=== PATIENT | male | born 1970 | race Caucasian/White ===

== ENCOUNTER 2020-05-14 07:43 | Inpatient (IN) | payer BC ==
[2020-05-14 08:33] LABS: Hemoglobin 12.7 g/dL (14.0-18.0); Mean Corpuscular HGB CONC 32.1 g/dL (32.0-36.0); Mean Corpuscular Hemoglobin 33.6 pg (27.0-31.0); Mean Platelet Volume 10.9 fL (7.4-10.4); Platelet Count 143 thou/uL (130-400); RBC Distribution Width 11.6 % (11.5-14.5); Red Blood Cell (RBC) Count 3.79 mill/uL (4.70-6.10); White Blood Cell (WBC) Count 15.2 thou/uL (4.8-10.8)
[2020-05-14] MEDS ORDERED: Heparin 1,000 UNITS/ML VIAL ONE (08:49)
[2020-05-14 08:58] LABS: Base Excess-Venous -11.4 mmol/L (-2.0 to 3.0); Bicarbonate (HCO3v) 15.7 mmol/L (22.0-28.0); CO2 Tension (PvCO2) 38.9 mmHg (40.0-50.0); Chloride 80 mmol/L (98-107); Hemoglobin - Calc 13.8 g/dL (14.0-18.0); Potassium 5.7 mmol/L (3.5-5.1); Sodium 111 mmol/L (138-145); T. Carbon Dioxide 16.9 mmol/L (22.0-28.0); vO2 Saturation-calc 70.3 % (60.0-85.0)
[2020-05-14 09:02] LABS: Band 32 % (5-11); Dohle Bodies SLIGHT; Lymphocytes 4 % (21-51); MDiff Complete? YES; Monocytes 3 % (0-10); Neutrophil 60 % (42-75); Platelet Morphology Comment Appears Adequate; Polychromasia SLIGHT = 2-3 cells (100X) (0-2/hpf); Reactive Lymphocytes 1 % (0-10)
[2020-05-14 09:15] LABS: ALT (SGPT) 39 U/L (8-55); AST (SGOT) 22 U/L (5-34); Albumin 3.2 g/dL (3.5-5.0); Alkaline Phosphatase 118 U/L (40-110); Anion Gap 31 mmol/L (10-20); BUN (Urea Nitrogen) 64 mg/dL (8.9-20.6); Bilirubin, Total 1.1 mg/dL (0.2-1.2); Calc. Creatinine Clearance 0 mL/min (70-130); Calcium 8.5 mg/dL (7.8-10.44); Carbon Dioxide 12 mmol/L (22-29); Chloride 78 mmol/L (98-107); Globulin 3.8 g/dL (2.4-3.5); Glucose 1181 mg/dL (70-105); Potassium 5.7 mmol/L (3.5-5.1); Sodium 115 mmol/L (136-145)
[2020-05-14 09:22] LABS: Magnesium 2.9 mg/dL (1.6-2.6); Phosphorus 4.7 mg/dL (2.3-4.7)
[2020-05-14] MEDS ORDERED: Insulin Regular 300 UNITS/3 ML VIAL ONE (09:40)
[2020-05-14] MEDS ORDERED: INSULIN REGULAR IN 0.9 % NACL 100 UNIT/100 ML BAG ONE (09:40)
[2020-05-14] MEDS ORDERED: INSULIN REGULAR IN 0.9 % NACL 100 UNIT in Premix Bag 1 BAG IVPB SCH (09:45)
[2020-05-14] MEDS ORDERED: Sodium Chloride 0.9% 1,000 ML IV PRN ×4 (10:07)
[2020-05-14] MEDS ORDERED: Dextrose 5 %-0.45 % NaCl 1,000 ML IV PRN (10:07)
[2020-05-14] MEDS ORDERED: Electrolyte Replacement Protocol 1 EACH IVPB ONE (10:07)
[2020-05-14] MEDS ORDERED: D5 1/2 NS w/20 mEq KCL 1,000 ML IV PRN (10:07)
[2020-05-14] MEDS ORDERED: NS 0.9% w/ 20 MEQ KCL 1,000 ML IV PRN (10:07)
[2020-05-14] MEDS ORDERED: Vancomycin 1 GM/200 ML BAG ONE (10:08)
[2020-05-14] MEDS ORDERED: Cefepime 2 GM VIAL ONE ×2 (10:08→10:12)
[2020-05-14] MEDS ORDERED: HUMULIN R 100 UNITS in Sodium Chloride 0.9% 100 ML IVPB SCH (10:15)
--- NOTE | 2020-05-14 10:43 | RAD ---
SINGLE VIEW CHEST: Date; 05/14/2020 COMPARISON: 02/02/2017. HISTORY: Dyspnea. FINDINGS: Single view of the chest shows an enlarged but stable cardiomediastinal silhouette. Bilateral pulmona ry vascular enlargement is seen. There are questionable areas of nodularity in the chest which could represent pulmonary vasculature, but also could represent pulmonary nodules. No pleural effusion is s een. IMPRESSION: 1. Cardiomegaly. 2. Questionable bilateral pulmonary nodules. A CT of the chest with contrast is recommended for furt her evaluation. POS: [place]
[2020-05-14 11:01] LABS: Bacteria/HPF None Seen HPF (None Seen); Bilirubin Negative (Negative); Blood, Urine 2+ (Negative); Clarity Clear (Clear); Glucose, Urine (Dipstick) Greater than 1000 mg/dL (Negative); Ketone, Urine Trace mg/dL (Negative); Leukocyte Negative Leu/uL (Negative); Nitrite Negative (Negative); Protein, Urine (Dipstick) Negative (Neg-Trace); RBC/HPF 0-3 HPF (0-3); Specific Gravity, Urine 1.022 (1.002-1.036); Squamous Epithelial 0-3 HPF (0-3); Urobilinogen Normal mg/dL (Less than 2)
[2020-05-14 11:15] LABS: SARS-CoV-2 NAA Rapid Test Not Detected (NotDetected)
[2020-05-14 11:41] LABS: Glucose 983 mg/dL (70-105)
[2020-05-14] MEDS ORDERED: Ondansetron PF 4 MG/2 ML Vial IVP PRN (13:03)
[2020-05-14] MEDS ORDERED: Senokot S 8.6-50 MG TAB PO PRN (13:03)
[2020-05-14 13:35] LABS: Anion Gap 22 mmol/L (10-20); BUN (Urea Nitrogen) 64 mg/dL (8.9-20.6); Calc. Creatinine Clearance 0 mL/min (70-130); Calcium 8.3 mg/dL (7.8-10.44); Carbon Dioxide 18 mmol/L (22-29); Chloride 86 mmol/L (98-107); Potassium 4.4 mmol/L (3.5-5.1); Sodium 122 mmol/L (136-145)
[2020-05-14 13:51] LABS: Glucose 901 mg/dL (70-105)
--- NOTE | 2020-05-14 14:00 | CT ---
CT Lower Ext Lt WO Con History: Left thigh cellulitis Comparison: None. Findings: Severe subcutaneous inflammation within the medial left thigh. Evaluation for drainable col lection is limited without intravenous contrast. Moderate to severe skin thickening and subcutaneous inflammation of the medial right thigh. No underlying erosions or periostitis. Ossification along the proximal left tibiofibular joint. No subcutaneous gas. No definite drainable fluid collection. No subcutaneous emphysema. No muscular edema is appreciated. No high-grade deep fascial edema. Low-grade fluid process in the me dial investing fascia of the thigh. Impression: 1. Severe left greater than right medial thigh cellulitis without without definite evidence for drain able collection although limited without intravenous contrast. 2. Early transudation of fluid along the left medial investing fascia of the thigh with small volume fluid within the posterior, medial, and anterior compartments of the left thigh. Patient is at risk for developing deep fasciitis and myositis.
--- NOTE | 2020-05-14 14:01 | HP ---
CHIEF COMPLAINT: Fall and generalized weakness. HISTORY OF PRESENT ILLNESS: The patient is a 50-year-old male with past medical history of obesity, diabetes on metformin, and hypertension, who was brought in by EMS after a fall. The patient's father is really involved in patient's care. States that the patient fell today. He did not hit his head. He has been out of his medications for the past few weeks. Per EMS, his blood sugar was 400 and in the hospital, his blood sugar was in the thousands. He denies any fevers, chills, any nausea, vomiting, or diarrhea. PAST MEDICAL HISTORY: He has a history of obesity, diabetes, and hypertension. PAST SURGICAL HISTORY: He has had a partial right knee replacement and right arthroscopic knee surgery. SOCIAL HISTORY: Denies any alcohol use. Denies any drug use. He currently smokes tobacco 1.5 packs per day. REVIEW OF SYSTEMS: All negative except for the ones mentioned in the HPI. PHYSICAL EXAMINATION: VITAL SIGNS: Temperature of 98.6, respirations of 20, oxygen saturation of 97% on room air, blood pressure of 108/41, and pulse of 92. GENERAL: The patient is awake, alert, and oriented x3. Does not appear in distress. CV: S1 and S2 present. No murmurs, rubs, or gallops. LUNGS: Clear to auscultation. No rhonchi or wheezes noted. ABDOMEN: Obese. Bowel sounds are present x2. EXTREMITIES: He does have chronic venous stasis changes. Pedal pulses are present x2. He does on his left thigh has a very large red area significantly edematous and has also some mild erythema. The patient states that he has had this for quite some time. SKIN: As I mentioned on his left thigh, he has significant skin changes and he has significant erythema and redness on the left thigh. LABORATORY RESULTS: WBC of 15.2, hemoglobin of 12.7, hematocrit of 39.6, platelets of 143, and bands of 32. Chemistry; sodium of 115, potassium of 5.7, BUN of 64, creatinine of 3.39, and his glucose was 1181. His magnesium was 2.9. His serum osmolality was 337. His lactic acid was 3.1. He did have a chest x-ray, which indicated cardiomegaly and questionable bilateral pulmonary nodules. ASSESSMENT AND PLAN: The patient is a very pleasant 50-year-old male, who presents to the hospital with complaints of fall and also was noted to have an elevated blood sugar. 1. Diabetic ketoacidosis. The patient received 2 L of normal saline, started on a DKA protocol. We will continue to check BMP every 4 hours. We will check a hemoglobin A1c. The patient is only on metformin, not on any insulin. He is significantly obese. I believe he will most likely require metformin. Per nursing staff, family stated the patient likes his sugary drinks. 2. Lactic acidosis most likely secondary to problem #1. We will continue to monitor. 3. Hyponatremia. This is false. His corrected sodium is 132, given his glucose of 1181. 4. Hyperkalemia. This is appropriate. We will continue to monitor. 5. Anion gap metabolic acidosis most likely secondary to his ketosis. His beta-hydroxybutyric acid was 6.90. 6. Sepsis. We will start patient on antibiotics, not sure if that left thigh is infected. We will get a CT for further evaluation. 7. Deep venous thrombosis prophylaxis. We will put the patient on Lovenox. Job ID: [id number]
[2020-05-14 14:31] LABS: Anion Gap 21 mmol/L (10-20); BUN (Urea Nitrogen) 63 mg/dL (8.9-20.6); Calc. Creatinine Clearance 0 mL/min (70-130); Calcium 8.5 mg/dL (7.8-10.44); Carbon Dioxide 20 mmol/L (22-29); Chloride 87 mmol/L (98-107); Potassium 4.6 mmol/L (3.5-5.1); Sodium 123 mmol/L (136-145)
[2020-05-14 14:32] LABS: Lactic Acid 2.9 mmol/L (0.5-2.2)
[2020-05-14 14:50] LABS: Glucose Greater than 800 mg/dL (70-105)
[2020-05-14 15:51] LABS: Glucose 891 mg/dL (70-105)
[2020-05-14 16:47] LABS: Glucose 824 mg/dL (70-105)
[2020-05-14] MEDS: Heparin 5,000 UNITS/ML VIAL SC SCH ×2 (16:53→21:04)
[2020-05-14 17:10] VITALS: BMI 52.0
[2020-05-14 17:12] LABS: Glucose 813 mg/dL (70-105)
[2020-05-14 18:29] LABS: Anion Gap 19 mmol/L (10-20); BUN (Urea Nitrogen) 59 mg/dL (8.9-20.6); Calc. Creatinine Clearance 82 mL/min (70-130); Calcium 8.7 mg/dL (7.8-10.44); Carbon Dioxide 22 mmol/L (22-29); Chloride 90 mmol/L (98-107); Potassium 4.1 mmol/L (3.5-5.1); Sodium 127 mmol/L (136-145)
[2020-05-14] MEDS: NS 0.9% w/ 20 MEQ KCL 1,000 ML IV PRN ×2 (18:32→22:49)
[2020-05-14 18:49] LABS: Glucose 793 mg/dL (70-105)
[2020-05-14 19:34] LABS: Glucose 738 mg/dL (70-105)
[2020-05-14 20:28] LABS: Glucose 647 mg/dL (70-105)
[2020-05-14] MEDS: Cefepime 2 GM in Sodium Chloride 0.9% 100 ML IVPB SCH (21:29)
[2020-05-14 21:37] LABS: Glucose 589 mg/dL (70-105)
[2020-05-14 22:49] LABS: Glucose 546 mg/dL (70-105)
[2020-05-14 23:28] LABS: Glucose 489 mg/dL (70-105)
[2020-05-14] MEDS: Nystatin Powder 15 GM BOT TOP PRN (23:43)
[2020-05-15 04:05] LABS: Band 35 % (5-11); Hypochromia SLIGHT = 6-15 cells (100X) (0-5/hpf); Lymphocytes 8 % (21-51); MDiff Complete? YES; Mean Corpuscular HGB CONC 35.1 g/dL (32.0-36.0); Mean Corpuscular Hemoglobin 33.9 pg (27.0-31.0); Mean Corpuscular Volume 96.5 fL (78.0-98.0); Mean Platelet Volume 9.5 fL (7.4-10.4); Metamyelocyte 4 % (0-0); Monocytes 10 % (0-10); Neutrophil 43 % (42-75); Platelet Count 121 thou/uL (130-400); Platelet Morphology Comment Appears Adequate; RBC Distribution Width 11.5 % (11.5-14.5); Red Blood Cell (RBC) Count 3.84 mill/uL (4.70-6.10); White Blood Cell (WBC) Count 10.3 thou/uL (4.8-10.8)
[2020-05-15 04:09] LABS: Anion Gap 17 mmol/L (10-20); BUN (Urea Nitrogen) 47 mg/dL (8.9-20.6); Calc. Creatinine Clearance 134 mL/min (70-130); Calcium 8.4 mg/dL (7.8-10.44); Carbon Dioxide 23 mmol/L (22-29); Chloride 100 mmol/L (98-107); Glucose 400 mg/dL (70-105); Potassium 3.8 mmol/L (3.5-5.1); Sodium 136 mmol/L (136-145)
[2020-05-15 04:14] LABS: Hemoglobin A1c Greater than 14.0 % (4.0-6.0)
[2020-05-15] MEDS ORDERED: Insulin Glargine 10 UNITS in Pre-Filled Syringe 1 EACH SC SCH (09:00)
[2020-05-15] MEDS ORDERED: Prevnar 13-Val Conj/PF 0.5 ML SYRINGE IM ONE (09:00)
[2020-05-15] MEDS ORDERED: FLU VACC QS2020-21(6MOS UP)/PF 60 MCG/0.5 ML SYRINGE IM ONE (09:00)
[2020-05-15] MEDS: Heparin 5,000 UNITS/ML VIAL SC SCH ×3 (09:09→20:54)
[2020-05-15] MEDS: Cefepime 2 GM in Sodium Chloride 0.9% 100 ML IVPB SCH ×2 (09:10→20:50)
[2020-05-15] MEDS: HumaLOG 300 UNITS/3 ML VIAL SC SCH ×2 (11:48→16:25)
[2020-05-15] MEDS ORDERED: Dextrose 50% Abboject 50 ML SYRINGE SLOW IVP PRN (19:57)
[2020-05-15] MEDS ORDERED: Dextrose 5% in Water 1,000 ML IV PRN (19:57)
[2020-05-15] MEDS: HumaLOG 300 UNITS/3 ML VIAL SC PRN (20:54)
--- NOTE | 2020-05-15 21:52 | CON ---
DATE OF CONSULTATION: 05/15/2020 REASON FOR CONSULTATION: Cellulitis, lymphedema. HISTORY OF PRESENT ILLNESS: A 50-year-old patient, last admission was in 2014, because of osteoarthritis medial aspect of right knee with unicompartmental arthrotomy and he presents now with history of having lost balance and slowly lowering himself to the floor and inability to resume the standing position, so EMS had to be activated and brought him to the hospital emergency room. On arrival, his BP 91/41, pulse 101, temperature 98.4, O2 saturation 96. He was described as awake and alert. Lungs and heart exam were described as normal. There is not a lot of the details of the skin exam. Initial findings also included a white cell count 15,000, hemoglobin 12.7, platelets 143. His MCV was very high at 105 and 32% bands. Blood gas, pH 7.21, pCO2 38, pO2 44, this is venous not arterial. Initial creatinine was 3.39 and went down to 1.49, glucose was high at 395. Other findings included bilirubin 1.1, normal transaminases and alkaline phosphatase 118, albumin 3.2, globulin 3.8. Urinalysis with 7-10 wbcs, 0-3 rbcs, beta hydroxybutyrate 6.9, carbon dioxide was 12 when he came in. The initial assessment was diabetic ketoacidosis. He was given IV fluids and DKA protocol with monitoring of BNP every 4 hours. He was not taking insulin. He was given broad-spectrum antimicrobial therapy. Currently, he is lying in bed. He is awake, alert, [id number] pain in the left thigh area. Lymphedema with cellulitis. No headaches. No sore throat, odynophagia, or dysphagia. No chest pain and no abdominal pain. Voiding without difficulty, no diarrhea, no skin lesions. PAST MEDICAL HISTORY: Morbid obesity, sleep apnea, hypertension, type 2 diabetes, now looks like type 1 at least transiently. SOCIAL HISTORY: Current smoker daily, more than a pack a day. 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 No alcoholic beverage use. PAST SURGICAL HISTORY: Includes cataract surgery, right knee surgery, arthroscopy as well. ALLERGIES: NONE. CURRENT MEDICATION LIST: 1. Cefepime. 2. Ondansetron. 3. Insulin lispro and regular. 4. Electrolyte solution. PHYSICAL EXAMINATION: VITAL SIGNS: T-max 99.4, BP 108/58, heart rate 74, O2 sats 92 to 97. SKIN: Shows the area of lymphedema, particularly in the left thigh with marked area of swelling with marked tenderness and erythema, pretty much the whole area is quite tender, no drainage noted. No areas of necrosis noted. The left side is not nearly as swollen and does not have the same inflammatory changes. There is a little bit of erythema and maceration around the gluteal and perineal area. There is a large area of lymphedema protruding from the posterior aspect of the left thigh. GENITOURINARY: Peripheral IV access, he is voiding on his own in the diaper. Ocular movements conjugate. HEENT: Oral cavity without inflammatory changes. Teeth with the usual decay expected. NECK: Supple. No jugular venous distention. LUNGS: Symmetric. Clear breath sounds. HEART: S1-S2 regular rate. No S3 or S4. ABDOMEN: Soft with very prominent panniculus, difficult to examine, but no tenderness noted and the patient has osteoarthrosis in knees and ankles, but no inflammatory changes noted. EXTREMITIES: Lymphedema in lower extremities, but no inflammatory changes below the knee. All the inflammatory changes concentrated on the left lymphedematous mass. NEUROLOGIC: He is awake, alert, oriented, follows commands. Good recollection. Speech is normal. No delusional thinking process. LABORATORY DATA: The latest lab follow up results with creatinine improved to 1.49. White cell count down to 10.3, hemoglobin 13, platelets 121,000, 35% bands. Urinalysis, 7-10 wbcs. IMAGING STUDIES: We have a lower extremity CT, which showed cellulitis of the left greater than the right, no collection noted. Small volume fluid in posterior medial anterior compartment, left thigh. No overt fasciitis or myositis. Chest x-ray, cardiomegaly, pulmonary nodules, questionable two sets of blood cultures thus far no growth to date. Urine culture is not going to be pertinent to this case. ASSESSMENT: Morbid obesity. Sleep apnea. Type 2 diabetes with transient decompensation and development of absolute deficiency of insulin with diabetic ketoacidosis associated with this acute infection. Thus far, bacteremia has not been demonstrated, but still early on, may still show up in his samples tomorrow. Lymphedematous mass, left thigh and no abscess formation but with cellulitis without necrotizing features yet DISCUSSION: Typically those processes are due to beta-hemolytic streptococci, but Staphylococcus aureus including MRSA and gram-negative rods, not ruled out. He must have some element of steatohepatitis and chronic liver disease, again it may be bacteremic. At this point, I would maintain the current antimicrobials, which seem to be effective and unfortunately this sort of situation will take a very long time to resolve in my experience and it may have to continue for quite a few weeks treatment with IV medication. He may require transfer to a skilled place once he stabilizes. He will benefit from long-term prophylaxis with Pen VK. I do not think he would be a candidate for any type of compressive device, although the lymphedema nurse might have some recommendations, so I would advise eventual consultation in the outpatient setting with the lymphedema nurse. Job ID: [id number] MTDD
[2020-05-16 05:57] LABS: Anion Gap 24 mmol/L (10-20); BUN (Urea Nitrogen) 31 mg/dL (8.9-20.6); Calc. Creatinine Clearance 162 mL/min (70-130); Calcium 8.2 mg/dL (7.8-10.44); Carbon Dioxide 18 mmol/L (22-29); Chloride 98 mmol/L (98-107); Glucose 388 mg/dL (70-105); Potassium 4.4 mmol/L (3.5-5.1); Sodium 136 mmol/L (136-145)
[2020-05-16] MEDS: HumaLOG 300 UNITS/3 ML VIAL SC PRN ×4 (05:59→21:54)
--- NOTE | 2020-05-16 08:14 | PDOC.HOSPP ---
- Subjective Encounter Date: 05/15/20 Encounter Time: 11:15 Subjective: pt up in bed no complains - Objective Vital Signs & Weight: Vital Signs (12 hours) Temp Pulse Resp BP BP Pulse Ox 05/16/20 07:17 98.9 F 99 20 149/72 H 95 05/16/20 04:10 98.1 F 96 32 H 109/60 94 L 05/15/20 22:45 98.2 F 105 H 32 H 119/62 96 Weight Weight 352 lb 4 oz Most Recent Monitor Data Heart Rate from ECG 101 NIBP 124/57 NIBP BP-Mean 79 Respiration from ECG 33 SpO2 97 I&O: 05/15/20 05/16/20 05/17/20 06:59 06:59 06:59 Intake Total 4184 5212 Output Total 0 4175 Balance 2134 1037 Result Diagrams: 05/15/20 03:16 05/16/20 04:56 Additional Labs: Accuchecks 05/15/20 05/15/20 05/15/20 20:24 16:24 11:48 POC Glucose 383 H 441 H 374 H 05/15/20 05/15/20 09:08 08:09 POC Glucose 311 H 319 H Hospitalist ROS - Review of Systems Cardiovascular: denies: chest pain, palpitations, orthopnea, paroxysmal noc. dyspnea, edema, light headedness, other Gastrointestinal: denies: nausea, vomiting, abdominal pain, diarrhea, constipation, melena, hematochezia, other Genitourinary: denies: dysuria, frequency, incontinence, hematuria, retention, other - Medication Medications: Active Medications Generic Name Dose Route Start Last Admin Trade Name Freq PRN Reason Stop Dose Admin Heparin Sodium (Porcine) 5,000 units 05/14/20 15:00 05/15/20 20:54 Heparin 5,000 Units/Ml Vial SC 5,000 units TID AAYUSH Administration Potassium Chloride/Sodium Chloride 1,000 mls @ 500 mls/hr 05/14/20 10:07 05/14/20 14:38 Ns 0.9% W/ 20 Meq Kcl IV 1,000 mls .Q2H PRN Administration Step 2 of DKA Protocol Protocol Potassium Chloride/Sodium Chloride 1,000 mls @ 250 mls/hr 05/14/20 10:07 05/14/20 22:49 Ns 0.9% W/ 20 Meq Kcl IV 1,000 mls .Q4H PRN Administration SEE STEP 3 OF DKA PROTOCOL Protocol Insulin Human Regular 100 101 mls @ 0 mls/hr 05/14/20 10:15 05/14/20 22:50 units/ Sodium Chloride IVPB 101 mls INF AAYUSH Administration Protocol Titrate Sodium Chloride 1,000 mls @ 500 mls/hr 05/14/20 10:07 05/14/20 13:11 Normal Saline 0.9% IV 1,000 mls .Q2H PRN Administration Step 2 of DKA Protocol Protocol Cefepime HCl 2 gm/ Sodium 100 mls @ 200 mls/hr 05/14/20 22:00 05/15/20 20:50 Chloride IVPB 100 mls 1000,2200 AAYUSH Administration Insulin Glargine 10 units/ 0.1 mls @ 0 mls/hr 05/15/20 09:00 05/15/20 09:09 Miscellaneous Medication SC 0.1 mls QAM AAYUSH Administration Insulin Human Lispro 5 units 05/15/20 12:00 05/15/20 16:25 Humalog 300 Units/3 Ml Vial SC 5 unit TID-WM AAYUSH Administration Insulin Human Lispro 0 units 05/15/20 19:57 05/15/20 20:54 Humalog 300 Units/3 Ml Vial SC 5 unit .BEDTIME SLIDING SC PRN Administration Bedtime Correctional Scale Insulin Human Lispro 0 units 05/15/20 19:57 05/16/20 05:59 Humalog 300 Units/3 Ml Vial SC 10 units .MODERATE SLIDING SC PRN Administration Moderate Correctional Scale Nystatin 0 gm 05/14/20 18:27 05/14/20 23:43 Nystatin Powder 15 Gm Bot TOP 1 applic BIDPRN PRN Administration Rash/Topical Irritation Sodium Chloride 10 ml 05/14/20 21:00 05/15/20 20:50 Flush - Normal Saline 10 Ml Syringe IVF 10 ml Q12HR AAYUSH Administration - Exam Neck: negative: supple, symmetric, no JVD, no thyromegaly, no lymphadenopathy, no carotid bruit, JVD Heart: negative: RRR, no murmur, no gallops, no rubs, normal peripheral pulses, irregular, diminshed peripheral pulses, murmur present, II/IV, III/IV Respiratory: negative: CTAB, no wheezes, no rales, no ronchi, normal chest expansion, no tachypnea, normal percussion, rales, rhonchi, tachypneic, wheezes Gastrointestinal: negative: soft, non-tender, non-distended, normal bowel sounds, no palpable masses, no hepatomegaly, no splenomegaly, no bruit, no guarding, no rigidity, tender to palpation, distended, diminished bowl sounds, voluntary guarding Extremities - other findings: right thigh cellulitis Hosp A/P (1) DKA (diabetic ketoacidoses) Code(s): E11.10 - TYPE 2 DIABETES MELLITUS WITH KETOACIDOSIS WITHOUT COMA Status: Acute (2) Cellulitis Code(s): L03.90 - CELLULITIS, UNSPECIFIED Status: Acute (3) Obesity Code(s): E66.9 - OBESITY, UNSPECIFIED Status: Acute (4) Increased anion gap metabolic acidosis Code(s): E87.2 - ACIDOSIS Status: Acute - Plan Patient taken off insulin drip his gap is closed. We will transition to subcu insulin. CT of the left thigh indicates cellulitis will get infectious disease involved. Patient states that he has had this for quite some time. We will continue cefepime from now. PT to evaluate patient patient most likely will need fpc facility.
[2020-05-16] MEDS ORDERED: metFORMIN 500 MG TAB PO SCH (08:30)
[2020-05-16] MEDS ORDERED: Lisinopril/Hydrochlorothiazide 20 mg/12.5 mg Tablet PO SCH (09:00)
[2020-05-16] MEDS ORDERED: Lisinopril 5 MG TAB PO SCH (09:00)
[2020-05-16] MEDS ORDERED: Meloxicam 15 MG TAB PO SCH (09:00)
[2020-05-16] MEDS: HumaLOG 300 UNITS/3 ML VIAL SC SCH ×3 (09:51→17:12)
[2020-05-16] MEDS: Insulin Glargine 15 UNITS in Pre-Filled Syringe 1 EACH SC SCH (09:52)
[2020-05-16] MEDS: Heparin 5,000 UNITS/ML VIAL SC SCH ×3 (09:54→21:53)
[2020-05-16] MEDS: Furosemide 20 MG TAB PO SCH (09:57)
[2020-05-16] MEDS: Cefepime 2 GM in Sodium Chloride 0.9% 100 ML IVPB SCH ×3 (10:01→13:14)
[2020-05-16] MEDS ORDERED: BIOTENE MOUTH SPRAY 44.3 ML PO SCH (16:15)
--- NOTE | 2020-05-16 16:34 | RAD ---
Chest one view HISTORY: Dyspnea. COMPARISON: 05/14/2020. FINDINGS: Cardiac silhouette is magnified and enlarged. Pulmonary vasculature is upper limits of norm al and accentuated by shallow inspiration. Subtle as the base is now present, partially obscuring the left hemidiaphragm. No lobar consolidation or evidence of pneumothorax. Calcified granulomata are consistent with healed granulomatous disease. IMPRESSION : Subtle left basilar infiltrate. Clinical correlation regarding other signs and symptoms of left basil ar pneumonitis is required. Cardiomegaly and other findings are stable.
[2020-05-16] MEDS: metFORMIN 500 MG TAB PO SCH (16:53)
[2020-05-16] MEDS: Sodium Chloride 0.9% 1,000 ML IV SCH (16:55)
[2020-05-16] MEDS ORDERED: Nystatin 100,000 Units/mL UDCUP SSW SCH (17:00)
[2020-05-16] MEDS: Nystatin Powder 15 GM BOT TOP PRN (17:13)
[2020-05-16] MEDS: Nystatin 500,000 UNITS/5 ML UDCUP SSW SCH ×2 (17:27→21:52)
[2020-05-16] MEDS: Atorvastatin Calcium 20 MG TAB PO SCH (21:52)
[2020-05-16] MEDS: BIOTENE MOUTH SPRAY 44.3 ML PO SCH (21:53)
[2020-05-17] MEDS: Cefepime 2 GM in Sodium Chloride 0.9% 100 ML IVPB SCH ×2 (01:04→13:27)
[2020-05-17] MEDS: HumaLOG 300 UNITS/3 ML VIAL SC PRN ×4 (05:57→21:08)
[2020-05-17 06:10] LABS: Anion Gap 20 mmol/L (10-20); BUN (Urea Nitrogen) 23 mg/dL (8.9-20.6); Calc. Creatinine Clearance 235 mL/min (70-130); Carbon Dioxide 20 mmol/L (22-29); Chloride 95 mmol/L (98-107); Glucose 294 mg/dL (70-105); Potassium 3.8 mmol/L (3.5-5.1); Sodium 131 mmol/L (136-145)
[2020-05-17] MEDS: Furosemide 20 MG TAB PO SCH ×2 (08:12→08:13)
[2020-05-17] MEDS: HumaLOG 300 UNITS/3 ML VIAL SC SCH ×3 (08:13→16:44)
[2020-05-17] MEDS: Heparin 5,000 UNITS/ML VIAL SC SCH ×3 (08:13→21:03)
[2020-05-17] MEDS: metFORMIN 500 MG TAB PO SCH ×2 (08:13→16:44)
[2020-05-17] MEDS: Nystatin 500,000 UNITS/5 ML UDCUP SSW SCH ×4 (08:13→21:01)
[2020-05-17] MEDS: BIOTENE MOUTH SPRAY 44.3 ML PO SCH ×2 (09:00→21:06)
[2020-05-17] MEDS: Insulin Glargine 15 UNITS in Pre-Filled Syringe 1 EACH SC SCH (09:21)
--- NOTE | 2020-05-17 10:11 | PDOC.HOSPP ---
- Subjective Encounter Date: 05/16/20 Encounter Time: 12:50 Subjective: Patient up in bed complains of sore throat. - Objective Vital Signs & Weight: Vital Signs (12 hours) Temp Pulse Resp BP Pulse Ox 05/17/20 07:20 98.8 F 100 18 123/67 95 05/17/20 03:34 98.1 F 91 18 129/70 94 L 05/16/20 23:25 98.6 F 95 20 121/67 93 L Weight Weight 352 lb 4 oz Most Recent Monitor Data Heart Rate from ECG 101 NIBP 124/57 NIBP BP-Mean 79 Respiration from ECG 33 SpO2 97 I&O: 05/16/20 05/17/20 05/18/20 06:59 06:59 06:59 Intake Total 5212 6630 Output Total 4175 2550 Balance 1037 4080 Result Diagrams: 05/15/20 03:16 05/17/20 05:10 Additional Labs: Accuchecks 05/17/20 05/16/20 05/16/20 05:50 19:49 15:43 POC Glucose 273 H 279 H 313 H 05/16/20 05/15/20 11:27 06:03 POC Glucose 313 H 324 H Hospitalist ROS - Review of Systems Constitutional: reports: weakness ENT: reports: mouth pain Cardiovascular: denies: chest pain, palpitations, orthopnea, paroxysmal noc. dyspnea, edema, light headedness, other Gastrointestinal: denies: nausea, vomiting, abdominal pain, diarrhea, constipation, melena, hematochezia, other Genitourinary: denies: dysuria, frequency, incontinence, hematuria, retention, other - Medication Medications: Active Medications Generic Name Dose Route Start Last Admin Trade Name Freq PRN Reason Stop Dose Admin Atorvastatin Calcium 20 mg 05/16/20 21:00 05/16/20 21:52 Atorvastatin Calcium 20 Mg Tab PO 20 mg HS AAYUSH Administration Furosemide 20 mg 05/16/20 09:00 05/17/20 08:13 Furosemide 20 Mg Tab PO 20 mg QAM AAYUSH Administration Heparin Sodium (Porcine) 5,000 units 05/14/20 15:00 05/17/20 08:13 Heparin 5,000 Units/Ml Vial SC 5,000 units TID AAYUSH Administration Insulin Glargine 15 units/ 0.15 mls @ 0 mls/hr 05/16/20 09:00 05/17/20 09:21 Miscellaneous Medication SC 0.15 mls QAM AAYUSH Administration Cefepime HCl 2 gm/ Sodium 100 mls @ 200 mls/hr 05/16/20 13:00 05/17/20 01:04 Chloride IVPB 100 mls 0100,1300 AAYUSH Administration Sodium Chloride 1,000 mls @ 75 mls/hr 05/16/20 16:00 05/16/20 16:55 Normal Saline 0.9% IV 1,000 mls .[id number] AAYUSH Administration Insulin Human Lispro 5 units 05/15/20 12:00 05/17/20 08:13 Humalog 300 Units/3 Ml Vial SC 5 unit TID-WM AAYUSH Administration Insulin Human Lispro 0 units 05/15/20 19:57 05/16/20 21:54 Humalog 300 Units/3 Ml Vial SC 3 unit .BEDTIME SLIDING SC PRN Administration Bedtime Correctional Scale Insulin Human Lispro 0 units 05/15/20 19:57 05/17/20 05:57 Humalog 300 Units/3 Ml Vial SC 6 units .MODERATE SLIDING SC PRN Administration Moderate Correctional Scale Metformin HCl 500 mg 05/16/20 17:00 05/17/20 08:13 Metformin 500 Mg Tab PO 500 mg BID-WM AAYUSH Administration Miscellaneous Medication 0 ml 05/16/20 21:00 05/16/20 21:53 Biotene Mouth [place] 44.3 Ml PO 1 spr BID AAYUSH Administration Nystatin 0 gm 05/14/20 18:27 05/16/20 17:13 Nystatin Powder 15 Gm Bot TOP 1 applic BIDPRN PRN Administration Rash/Topical Irritation Nystatin 500,000 units 05/16/20 17:00 05/17/20 08:13 Nystatin 500,000 Units/5 Ml Udcup SSW 500,000 units QID AAYUSH Administration Sodium Chloride 10 ml 05/14/20 21:00 05/16/20 22:59 Flush - Normal Saline 10 Ml Syringe IVF Not Given Q12HR AAYUSH - Exam ENT: dry oral mucosa ENT - other findings: Significant dryness and mild erythema Neck: negative: supple, symmetric, no JVD, no thyromegaly, no lymphadenopathy, no carotid bruit, JVD Heart: negative: RRR, no murmur, no gallops, no rubs, normal peripheral pulses, irregular, diminshed peripheral pulses, murmur present, II/IV, III/IV Respiratory: negative: CTAB, no wheezes, no rales, no ronchi, normal chest expansion, no tachypnea, normal percussion, rales, rhonchi, tachypneic, wheezes Gastrointestinal: negative: soft, non-tender, non-distended, normal bowel sounds, no palpable masses, no hepatomegaly, no splenomegaly, no bruit, no guarding, no rigidity, tender to palpation, distended, diminished bowl sounds, voluntary guarding Hosp A/P (1) DKA (diabetic ketoacidoses) Code(s): E11.10 - TYPE 2 DIABETES MELLITUS WITH KETOACIDOSIS WITHOUT COMA Status: Acute (2) Cellulitis Code(s): L03.90 - CELLULITIS, UNSPECIFIED Status: Acute (3) Obesity Code(s): E66.9 - OBESITY, UNSPECIFIED Status: Acute (4) Increased anion gap metabolic acidosis Code(s): E87.2 - ACIDOSIS Status: Acute - Plan Patient taken off insulin drip his gap is closed. We will transition to subcu insulin. CT of the left thigh indicates cellulitis will get infectious disease involved. Patient states that he has had this for quite some time. We will continue cefepime from now. PT to evaluate patient patient most likely will need fci facility. 12 still appears very dehydrated we will start him on some IV fluids. We will start him on some nystatin however I did not appreciate any oral thrush. We will see physical therapy to work with patient. We will also start him on some duo nebs he continues to smoke. Will check a BNP
[2020-05-17] MEDS: Acetaminophen 325 MG TAB PO PRN (12:15)
[2020-05-17] MEDS: Sodium Chloride 0.9% 1,000 ML IV SCH ×2 (12:56→21:03)
--- NOTE | 2020-05-17 18:04 | PDOC.HOSPP ---
- Subjective Encounter Date: 05/17/20 Encounter Time: 11:50 Subjective: Patient up in bed no complaints. - Objective Vital Signs & Weight: Vital Signs (12 hours) Temp Pulse Resp BP Pulse Ox 05/17/20 15:15 98.5 F 95 18 132/81 92 L 05/17/20 11:00 98.5 F 96 18 108/66 95 05/17/20 08:00 95 05/17/20 07:20 98.8 F 100 18 123/67 95 Weight Weight 352 lb 4 oz Most Recent Monitor Data Heart Rate from ECG 101 NIBP 124/57 NIBP BP-Mean 79 Respiration from ECG 33 SpO2 97 I&O: 05/16/20 05/17/20 05/18/20 06:59 06:59 06:59 Intake Total 5212 6630 Output Total 4175 2550 Balance 1037 4080 Result Diagrams: 05/15/20 03:16 05/17/20 05:10 Additional Labs: Accuchecks 05/17/20 05/17/20 05/17/20 16:19 11:06 05:50 POC Glucose 242 H 300 H 273 H 05/16/20 05/16/20 05/15/20 19:49 05:52 06:03 POC Glucose 279 H 389 H 324 H Hospitalist ROS - Review of Systems Cardiovascular: denies: chest pain, palpitations, orthopnea, paroxysmal noc. dyspnea, edema, light headedness, other Gastrointestinal: denies: nausea, vomiting, abdominal pain, diarrhea, constipation, melena, hematochezia, other Genitourinary: denies: dysuria, frequency, incontinence, hematuria, retention, other - Medication Medications: Active Medications Generic Name Dose Route Start Last Admin Trade Name Freq PRN Reason Stop Dose Admin Acetaminophen 650 mg 05/14/20 13:03 05/17/20 12:15 Acetaminophen 325 Mg Tab PO 650 mg Q6H PRN Administration Headache/Fever/Mild Pain (1-3) Atorvastatin Calcium 20 mg 05/16/20 21:00 05/16/20 21:52 Atorvastatin Calcium 20 Mg Tab PO 20 mg HS AAYUSH Administration Furosemide 20 mg 05/16/20 09:00 05/17/20 08:13 Furosemide 20 Mg Tab PO 20 mg QAM AAYUSH Administration Heparin Sodium (Porcine) 5,000 units 05/14/20 15:00 05/17/20 16:05 Heparin 5,000 Units/Ml Vial SC 5,000 units TID AAYUSH Administration Insulin Glargine 15 units/ 0.15 mls @ 0 mls/hr 05/16/20 09:00 05/17/20 09:21 Miscellaneous Medication SC 0.15 mls QAM AAYUSH Administration Cefepime HCl 2 gm/ Sodium 100 mls @ 200 mls/hr 05/16/20 13:00 05/17/20 13:27 Chloride IVPB 100 mls 0100,1300 AAYUSH Administration Sodium Chloride 1,000 mls @ 75 mls/hr 05/16/20 16:00 05/17/20 12:56 Normal Saline 0.9% IV Not Given .[id number] AAYUSH Insulin Human Lispro 5 units 05/15/20 12:00 05/17/20 16:44 Humalog 300 Units/3 Ml Vial SC 5 unit TID-WM AAYUSH Administration Insulin Human Lispro 0 units 05/15/20 19:57 05/16/20 21:54 Humalog 300 Units/3 Ml Vial SC 3 unit .BEDTIME SLIDING SC PRN Administration Bedtime Correctional Scale Insulin Human Lispro 0 units 05/15/20 19:57 05/17/20 16:45 Humalog 300 Units/3 Ml Vial SC 4 units .MODERATE SLIDING SC PRN Administration Moderate Correctional Scale Metformin HCl 500 mg 05/16/20 17:00 05/17/20 16:44 Metformin 500 Mg Tab PO 500 mg BID-WM AAYUSH Administration Miscellaneous Medication 0 ml 05/16/20 21:00 05/17/20 09:00 Biotene Mouth [place] 44.3 Ml PO 1 spr BID AAYUSH Administration Nystatin 0 gm 05/14/20 18:27 05/16/20 17:13 Nystatin Powder 15 Gm Bot TOP 1 applic BIDPRN PRN Administration Rash/Topical Irritation Nystatin 500,000 units 05/16/20 17:00 05/17/20 16:44 Nystatin 500,000 Units/5 Ml Udcup SSW 500,000 units QID AAYUSH Administration Senna/Docusate Sodium 2 tab 05/14/20 13:03 05/17/20 12:15 Senokot S 8.6-50 Mg Tab PO 2 tab BIDPRN PRN Administration Constipation Sodium Chloride 10 ml 05/14/20 21:00 05/17/20 12:58 Flush - Normal Saline 10 Ml Syringe IVF Not Given Q12HR AAYUSH - Exam Neck: negative: supple, symmetric, no JVD, no thyromegaly, no lymphadenopathy, no carotid bruit, JVD Heart: negative: RRR, no murmur, no gallops, no rubs, normal peripheral pulses, irregular, diminshed peripheral pulses, murmur present, II/IV, III/IV Respiratory: negative: CTAB, no wheezes, no rales, no ronchi, normal chest expansion, no tachypnea, normal percussion, rales, rhonchi, tachypneic, wheezes Hosp A/P (1) DKA (diabetic ketoacidoses) Code(s): E11.10 - TYPE 2 DIABETES MELLITUS WITH KETOACIDOSIS WITHOUT COMA Status: Acute (2) Cellulitis Code(s): L03.90 - CELLULITIS, UNSPECIFIED Status: Acute (3) Obesity Code(s): E66.9 - OBESITY, UNSPECIFIED Status: Acute (4) Increased anion gap metabolic acidosis Code(s): E87.2 - ACIDOSIS Status: Acute - Plan Patient taken off insulin drip his gap is closed. We will transition to subcu insulin. CT of the left thigh indicates cellulitis will get infectious disease involved. Patient states that he has had this for quite some time. We will continue cefepime from now. PT to evaluate patient patient most likely will need [facility] facility. 05/16 still appears very dehydrated we will start him on some IV fluids. We will start him on some nystatin however I did not appreciate any oral thrush. We will see physical therapy to work with patient. We will also start him on some duo nebs he continues to smoke. Will check a BNP 05/17 we will continue IV antibiotics for now. We will give him 1 dose of IV Diflucan since he complains of pain on swallowing. No visible thrush noted. We will also put patient on PPI. We will add Lantus 8 units at nighttime.
[2020-05-17] MEDS ORDERED: Fluconazole In NaCl,Iso-Osm 200 MG in Premix Bag 1 BAG IVPB SCH (18:15)
[2020-05-17] MEDS: Atorvastatin Calcium 20 MG TAB PO SCH (21:02)
[2020-05-17] MEDS: Famotidine 20 MG TAB PO SCH (21:02)
[2020-05-17] MEDS: Insulin Glargine 8 UNITS in Pre-Filled Syringe 1 EACH SC SCH (21:05)
[2020-05-18] MEDS: Cefepime 2 GM in Sodium Chloride 0.9% 100 ML IVPB SCH ×2 (00:31→13:24)
[2020-05-18] MEDS: HumaLOG 300 UNITS/3 ML VIAL SC PRN ×4 (05:57→21:43)
[2020-05-18] MEDS: Sodium Chloride 0.9% 1,000 ML IV SCH ×2 (05:59→21:41)
[2020-05-18 06:43] LABS: Band 13 % (5-11); Hemoglobin 12.2 g/dL (14.0-18.0); Lymphocytes 14 % (21-51); MDiff Complete? YES; Mean Corpuscular HGB CONC 34.1 g/dL (32.0-36.0); Mean Corpuscular Hemoglobin 33.7 pg (27.0-31.0); Mean Corpuscular Volume 98.9 fL (78.0-98.0); Mean Platelet Volume 8.9 fL (7.4-10.4); Metamyelocyte 1 % (0-0); Monocytes 2 % (0-10); Myelocyte 1 % (0-0); Neutrophil 57 % (42-75); Platelet Count 130 thou/uL (130-400); Platelet Morphology Comment Appears Adequate; Polychromasia SLIGHT = 2-3 cells (100X) (0-2/hpf); RBC Distribution Width 11.6 % (11.5-14.5); Reactive Lymphocytes 12 % (0-10); Red Blood Cell (RBC) Count 3.62 mill/uL (4.70-6.10); White Blood Cell (WBC) Count 11.2 thou/uL (4.8-10.8)
[2020-05-18 06:46] LABS: ALT (SGPT) 36 U/L (8-55); AST (SGOT) 35 U/L (5-34); Albumin 2.2 g/dL (3.5-5.0); Alkaline Phosphatase 168 U/L (40-110); Anion Gap 20 mmol/L (10-20); BUN (Urea Nitrogen) 15 mg/dL (8.9-20.6); Bilirubin, Total 0.9 mg/dL (0.2-1.2); Calc. Creatinine Clearance 270 mL/min (70-130); Calcium 7.6 mg/dL (7.8-10.44); Carbon Dioxide 19 mmol/L (22-29); Chloride 97 mmol/L (98-107); Globulin 3.6 g/dL (2.4-3.5); Glucose 248 mg/dL (70-105); Potassium 3.6 mmol/L (3.5-5.1); Protein, Total 5.8 g/dL (6.0-8.3); Sodium 132 mmol/L (136-145)
[2020-05-18] MEDS: Furosemide 20 MG TAB PO SCH (08:28)
[2020-05-18] MEDS: Famotidine 20 MG TAB PO SCH ×2 (08:28→21:40)
[2020-05-18] MEDS: metFORMIN 500 MG TAB PO SCH ×2 (08:28→17:30)
[2020-05-18] MEDS: Nystatin 500,000 UNITS/5 ML UDCUP SSW SCH ×4 (08:29→21:41)
[2020-05-18] MEDS: Insulin Glargine 15 UNITS in Pre-Filled Syringe 1 EACH SC SCH (08:29)
[2020-05-18] MEDS: Heparin 5,000 UNITS/ML VIAL SC SCH ×3 (08:29→21:40)
[2020-05-18] MEDS: HumaLOG 300 UNITS/3 ML VIAL SC SCH ×3 (08:30→17:31)
[2020-05-18] MEDS: BIOTENE MOUTH SPRAY 44.3 ML PO SCH (11:55)
--- NOTE | 2020-05-18 14:41 | PDOC.HOSPP ---
- Subjective Encounter Date: 05/18/20 Encounter Time: 12:30 Subjective: Patient up in bed no complaints. - Objective Vital Signs & Weight: Vital Signs (12 hours) Temp Pulse Resp BP Pulse Ox 05/18/20 12:00 18 05/18/20 11:15 98.8 F 95 18 130/71 95 05/18/20 08:00 96 05/18/20 07:05 98.4 F 95 18 118/75 94 L 05/18/20 03:50 98.4 F 92 18 156/73 H 96 Weight Weight 352 lb 4 oz Most Recent Monitor Data Heart Rate from ECG 101 NIBP 124/57 NIBP BP-Mean 79 Respiration from ECG 33 SpO2 97 I&O: 05/17/20 05/18/20 05/19/20 06:59 06:59 06:59 Intake Total 6630 7125 Output Total 2550 3650 Balance 4080 3475 Result Diagrams: 05/18/20 05:33 05/18/20 05:33 Additional Labs: Accuchecks 05/18/20 05/18/20 05/17/20 11:10 05:36 20:23 POC Glucose 257 H 236 H 232 H 05/17/20 05/16/20 16:19 05:52 POC Glucose 242 H 389 H Hospitalist ROS - Review of Systems Cardiovascular: denies: chest pain, palpitations, orthopnea, paroxysmal noc. dyspnea, edema, light headedness, other Gastrointestinal: denies: nausea, vomiting, abdominal pain, diarrhea, constipation, melena, hematochezia, other Genitourinary: denies: dysuria, frequency, incontinence, hematuria, retention, other - Medication Medications: Active Medications Generic Name Dose Route Start Last Admin Trade Name Freq PRN Reason Stop Dose Admin Acetaminophen 650 mg 05/14/20 13:03 05/17/20 12:15 Acetaminophen 325 Mg Tab PO 650 mg Q6H PRN Administration Headache/Fever/Mild Pain (1-3) Atorvastatin Calcium 20 mg 05/16/20 21:00 05/17/20 21:02 Atorvastatin Calcium 20 Mg Tab PO 20 mg HS AAYUSH Administration Famotidine 20 mg 05/17/20 21:00 05/18/20 08:28 Famotidine 20 Mg Tab PO 20 mg BID AAYUSH Administration Furosemide 20 mg 05/16/20 09:00 12/15/20 08:28 Furosemide 20 Mg Tab PO 20 mg QAM AAYUSH Administration Heparin Sodium (Porcine) 5,000 units 05/14/20 15:00 05/18/20 08:29 Heparin 5,000 Units/Ml Vial SC 5,000 units TID AAYUSH Administration Insulin Glargine 15 units/ 0.15 mls @ 0 mls/hr 05/16/20 09:00 05/18/20 08:29 Miscellaneous Medication SC 0.15 mls QAM AAYUSH Administration Cefepime HCl 2 gm/ Sodium 100 mls @ 200 mls/hr 05/16/20 13:00 05/18/20 13:24 Chloride IVPB 100 mls 0100,1300 AAYUSH Administration Sodium Chloride 1,000 mls @ 75 mls/hr 05/16/20 16:00 05/18/20 05:59 Normal Saline 0.9% IV 1,000 mls .[id number] AAYUSH Administration Insulin Glargine 8 units/ 0.08 mls @ 0 mls/hr 05/17/20 21:00 05/17/20 21:05 Miscellaneous Medication SC 0.08 mls HS AAYUSH Administration Insulin Human Lispro 5 units 05/15/20 12:00 05/18/20 11:56 Humalog 300 Units/3 Ml Vial SC 5 unit TID-WM AAYUSH Administration Insulin Human Lispro 0 units 05/15/20 19:57 05/17/20 21:08 Humalog 300 Units/3 Ml Vial SC 2 unit .BEDTIME SLIDING SC PRN Administration Bedtime Correctional Scale Insulin Human Lispro 0 units 05/15/20 19:57 05/18/20 11:56 Humalog 300 Units/3 Ml Vial SC 6 units .MODERATE SLIDING SC PRN Administration Moderate Correctional Scale Metformin HCl 500 mg 05/16/20 17:00 05/18/20 08:28 Metformin 500 Mg Tab PO 500 mg BID-WM AAYUSH Administration Miscellaneous Medication 0 ml 05/16/20 21:00 05/18/20 11:55 Biotene Mouth [place] 44.3 Ml PO Not Given BID AAYUSH Nystatin 0 gm 05/14/20 18:27 05/16/20 17:13 Nystatin Powder 15 Gm Bot TOP 1 applic BIDPRN PRN Administration Rash/Topical Irritation Nystatin 500,000 units 05/16/20 17:00 05/18/20 13:24 Nystatin 500,000 Units/5 Ml Udcup SSW 500,000 units QID AAYUSH Administration Senna/Docusate Sodium 2 tab 05/14/20 13:03 05/17/20 12:15 Senokot S 8.6-50 Mg Tab PO 2 tab BIDPRN PRN Administration Constipation Sodium Chloride 10 ml 05/14/20 21:00 05/18/20 11:55 Flush - Normal Saline 10 Ml Syringe IVF Not Given Q12HR AAYUSH - Exam Heart: negative: RRR, no murmur, no gallops, no rubs, normal peripheral pulses, irregular, diminshed peripheral pulses, murmur present, II/IV, III/IV Respiratory: negative: CTAB, no wheezes, no rales, no ronchi, normal chest expansion, no tachypnea, normal percussion, rales, rhonchi, tachypneic, wheezes Gastrointestinal: negative: soft, non-tender, non-distended, normal bowel sounds, no palpable masses, no hepatomegaly, no splenomegaly, no bruit, no guarding, no rigidity, tender to palpation, distended, diminished bowl sounds, voluntary guarding Hosp A/P (1) DKA (diabetic ketoacidoses) Code(s): E11.10 - TYPE 2 DIABETES MELLITUS WITH KETOACIDOSIS WITHOUT COMA Status: Acute (2) Cellulitis Code(s): L03.90 - CELLULITIS, UNSPECIFIED Status: Acute (3) Obesity Code(s): E66.9 - OBESITY, UNSPECIFIED Status: Acute (4) Increased anion gap metabolic acidosis Code(s): E87.2 - ACIDOSIS Status: Acute - Plan Patient taken off insulin drip his gap is closed. We will transition to subcu insulin. CT of the left thigh indicates cellulitis will get infectious disease involved. Patient states that he has had this for quite some time. We will continue cefepime from now. PT to evaluate patient patient most likely will need prison facility. 05/16 still appears very dehydrated we will start him on some IV fluids. We will start him on some nystatin however I did not appreciate any oral thrush. We will see physical therapy to work with patient. We will also start him on some duo nebs he continues to smoke. Will check a BNP 05/17 we will continue IV antibiotics for now. We will give him 1 dose of IV Diflucan since he complains of pain on swallowing. No visible thrush noted. We will also put patient on PPI. We will add Lantus 8 units at nighttime. 05/18 continue IV Diflucan for now. We will continue insulin. Patient most likely will need prison facility. On DVT prophylaxis. We will continue current antibiotics.
[2020-05-18] MEDS ORDERED: Fluconazole In NaCl,Iso-Osm 200 MG in Premix Bag 1 BAG IVPB SCH (15:00)
[2020-05-18] MEDS: Acetaminophen 325 MG TAB PO PRN (21:39)
[2020-05-18] MEDS: Insulin Glargine 8 UNITS in Pre-Filled Syringe 1 EACH SC SCH (21:40)
[2020-05-18] MEDS: Atorvastatin Calcium 20 MG TAB PO SCH (21:40)
[2020-05-18] MEDS ORDERED: Ketorolac Tromethamine 10 MG TAB PO PRN (21:57)
[2020-05-18] MEDS: Ketorolac Tromethamine 10 MG TAB PO PRN (23:49)
[2020-05-19] MEDS: Cefepime 2 GM in Sodium Chloride 0.9% 100 ML IVPB SCH ×2 (00:04→13:16)
[2020-05-19] MEDS: HumaLOG 300 UNITS/3 ML VIAL SC PRN ×4 (05:54→21:06)
[2020-05-19] MEDS: Acetaminophen 325 MG TAB PO PRN (05:58)
[2020-05-19 05:59] LABS: Anion Gap 15 mmol/L (10-20); BUN (Urea Nitrogen) 12 mg/dL (8.9-20.6); Calc. Creatinine Clearance 259 mL/min (70-130); Calcium 7.4 mg/dL (7.8-10.44); Carbon Dioxide 24 mmol/L (22-29); Chloride 97 mmol/L (98-107); Glucose 303 mg/dL (70-105); Potassium 3.3 mmol/L (3.5-5.1); Sodium 133 mmol/L (136-145)
[2020-05-19] MEDS ORDERED: Fluconazole In NaCl,Iso-Osm 200 MG in Premix Bag 1 BAG IVPB SCH (09:15)
[2020-05-19] MEDS: metFORMIN 500 MG TAB PO SCH ×2 (09:29→16:53)
[2020-05-19] MEDS: Famotidine 20 MG TAB PO SCH ×2 (09:29→21:04)
[2020-05-19] MEDS: HumaLOG 300 UNITS/3 ML VIAL SC SCH ×3 (09:30→17:29)
[2020-05-19] MEDS: Nystatin 500,000 UNITS/5 ML UDCUP SSW SCH ×4 (09:31→21:05)
[2020-05-19] MEDS: Heparin 5,000 UNITS/ML VIAL SC SCH ×3 (09:31→21:05)
[2020-05-19] MEDS: BIOTENE MOUTH SPRAY 44.3 ML PO SCH ×2 (09:33→21:23)
[2020-05-19] MEDS: Insulin Glargine 15 UNITS in Pre-Filled Syringe 1 EACH SC SCH (09:47)
[2020-05-19] MEDS ORDERED: Potassium Chloride 20 MEQ TAB PO SCH (10:30)
[2020-05-19] MEDS ORDERED: Electrolyte Replacement Protocol 1 EACH FS SCH (10:30)
[2020-05-19] MEDS ORDERED: Electrolyte Replacement Protocol FS PRN (10:30)
[2020-05-19] MEDS ORDERED: Magnesium 2 GM/50 ML 2 GM in Premix Bag 1 BAG IVPB SCH (10:45)
[2020-05-19] MEDS: Sodium Chloride 0.9% 1,000 ML IV SCH (12:15)
[2020-05-19] MEDS: Lisinopril 20 MG TAB PO SCH (12:15)
[2020-05-19] MEDS: Ketorolac Tromethamine 10 MG TAB PO PRN ×2 (13:23→21:05)
--- NOTE | 2020-05-19 16:40 | PDOC.HOSPP ---
- Subjective Encounter Date: 05/19/20 Encounter Time: 11:25 Subjective: Patient up in bed still complains of dry mouth. - Objective Vital Signs & Weight: Vital Signs (12 hours) Temp Pulse Resp BP Pulse Ox 05/19/20 11:12 98.3 F 88 20 113/66 94 L 05/19/20 08:35 98 05/19/20 07:21 98.4 F 100 20 128/64 92 L Weight Weight 352 lb 4 oz Most Recent Monitor Data Heart Rate from ECG 101 NIBP 124/57 NIBP BP-Mean 79 Respiration from ECG 33 SpO2 97 I&O: 05/18/20 05/19/20 05/20/20 06:59 06:59 06:59 Intake Total 7125 7548 Output Total 3650 5725 Balance 8572 5503 Result Diagrams: 05/18/20 05:33 05/19/20 04:52 Additional Labs: Accuchecks 05/19/20 05/19/20 05/19/20 16:26 11:14 05:46 POC Glucose 281 H 248 H 277 H 05/18/20 20:57 POC Glucose 216 H Hospitalist ROS - Review of Systems Cardiovascular: denies: chest pain, palpitations, orthopnea, paroxysmal noc. dyspnea, edema, light headedness, other Gastrointestinal: denies: nausea, vomiting, abdominal pain, diarrhea, constipation, melena, hematochezia, other Genitourinary: denies: dysuria, frequency, incontinence, hematuria, retention, other - Medication Medications: Active Medications Generic Name Dose Route Start Last Admin Trade Name Freq PRN Reason Stop Dose Admin Acetaminophen 650 mg 05/14/20 13:03 05/19/20 05:58 Acetaminophen 325 Mg Tab PO 650 mg Q6H PRN Administration Headache/Fever/Mild Pain (1-3) Atorvastatin Calcium 20 mg 05/16/20 21:00 05/18/20 21:40 Atorvastatin Calcium 20 Mg Tab PO 20 mg HS AAYUSH Administration Famotidine 20 mg 05/17/20 21:00 05/19/20 09:29 Famotidine 20 Mg Tab PO 20 mg BID AAYUSH Administration Furosemide 20 mg 05/16/20 09:00 05/18/20 08:28 Furosemide 20 Mg Tab PO 20 mg QAM AAYUSH Administration Heparin Sodium (Porcine) 5,000 units 05/14/20 15:00 05/19/20 15:14 Heparin 5,000 Units/Ml Vial SC 5,000 units TID AAYUSH Administration Insulin Glargine 15 units/ 0.15 mls @ 0 mls/hr 05/16/20 09:00 05/19/20 09:47 Miscellaneous Medication SC 0.15 mls QAM AAYUSH Administration Cefepime HCl 2 gm/ Sodium 100 mls @ 200 mls/hr 05/16/20 13:00 05/19/20 13:16 Chloride IVPB 100 mls 0100,1300 AAYUSH Administration Sodium Chloride 1,000 mls @ 75 mls/hr 05/16/20 16:00 05/19/20 12:15 Normal Saline 0.9% IV 1,000 mls .[id number] AAYUSH Administration Insulin Glargine 8 units/ 0.08 mls @ 0 mls/hr 05/17/20 21:00 05/18/20 21:40 Miscellaneous Medication SC 0.08 mls HS AAYUSH Administration Insulin Human Lispro 0 units 05/15/20 19:57 05/18/20 21:43 Humalog 300 Units/3 Ml Vial SC 2 unit .BEDTIME SLIDING SC PRN Administration Bedtime Correctional Scale Insulin Human Lispro 0 units 05/15/20 19:57 05/19/20 12:17 Humalog 300 Units/3 Ml Vial SC 4 units .MODERATE SLIDING SC PRN Administration Moderate Correctional Scale Ketorolac Tromethamine 10 mg 05/18/20 23:20 05/19/20 13:23 Ketorolac Tromethamine 10 Mg Tab PO 05/23/20 23:21 10 mg Q6HR PRN Administration pain Lisinopril 20 mg 05/19/20 09:00 05/19/20 12:15 Lisinopril 20 Mg Tab PO Not Given DAILY AAYUSH Metformin HCl 500 mg 05/16/20 17:00 05/19/20 09:29 Metformin 500 Mg Tab PO 500 mg BID-WM AAYUSH Administration Miscellaneous Medication 0 ml 05/16/20 21:00 05/19/20 09:33 Biotene Mouth [place] 44.3 Ml PO Not Given BID AAYUSH Nystatin 0 gm 05/14/20 18:27 05/16/20 17:13 Nystatin Powder 15 Gm Bot TOP 1 applic BIDPRN PRN Administration Rash/Topical Irritation Nystatin 500,000 units 05/16/20 17:00 05/19/20 13:16 Nystatin 500,000 Units/5 Ml Udcup SSW 500,000 units QID AAYUSH Administration Senna/Docusate Sodium 2 tab 05/14/20 13:03 05/17/20 12:15 Senokot S 8.6-50 Mg Tab PO 2 tab BIDPRN PRN Administration Constipation Sodium Chloride 10 ml 05/14/20 21:00 05/19/20 09:33 Flush - Normal Saline 10 Ml Syringe IVF Not Given Q12HR AAYUSH - Exam General - other findings: mouth appears dry Neck: negative: supple, symmetric, no JVD, no thyromegaly, no lymphadenopathy, no carotid bruit, JVD Heart: negative: RRR, no murmur, no gallops, no rubs, normal peripheral pulses, irregular, diminshed peripheral pulses, murmur present, II/IV, III/IV Respiratory: negative: CTAB, no wheezes, no rales, no ronchi, normal chest expansion, no tachypnea, normal percussion, rales, rhonchi, tachypneic, wheezes Gastrointestinal: negative: soft, non-tender, non-distended, normal bowel sounds, no palpable masses, no hepatomegaly, no splenomegaly, no bruit, no guarding, no rigidity, tender to palpation, distended, diminished bowl sounds, voluntary guarding Extremities: 2+ LE edema Extremities - other findings: Left thigh erythema noted. Hosp A/P (1) DKA (diabetic ketoacidoses) Code(s): E11.10 - TYPE 2 DIABETES MELLITUS WITH KETOACIDOSIS WITHOUT COMA Status: Acute (2) Cellulitis Code(s): L03.90 - CELLULITIS, UNSPECIFIED Status: Acute (3) Obesity Code(s): E66.9 - OBESITY, UNSPECIFIED Status: Acute (4) Increased anion gap metabolic acidosis Code(s): E87.2 - ACIDOSIS Status: Acute - Plan Patient taken off insulin drip his gap is closed. We will transition to subcu i nsulin. CT of the left thigh indicates cellulitis will get infectious disease involved. Patient states that he has had this for quite some time. We will continue cefepime from now. PT to evaluate patient patient most likely will need long-term facility. 05/16 still appears very dehydrated we will start him on some IV fluids. We will start him on some nystatin however I did not appreciate any oral thrush. We will see physical therapy to work with patient. We will also start him on s ome duo nebs he continues to smoke. Will check a BNP 05/17 we will continue IV antibiotics for now. We will give him 1 dose of IV Diflucan since he complains of pain on swallowing. No visible thrush noted. We will also put patient on PPI. We will add Lantus 8 units at nighttime. 05/18 continue IV Diflucan for now. We will continue insulin. Patient most likely will need long-term facility. On DVT prophylaxis. We will continue current antibiotics. 05/19 we will increase patient's Humalog to 8 units with meals. Patient will require long-term facility. Possible discharge in the next 24 hours. We will continue current antibiotics. Will check labs in a.m. Will replace potassium. Asked physical therapy to get patient up in chair.
[2020-05-19] MEDS: Atorvastatin Calcium 20 MG TAB PO SCH (21:04)
[2020-05-19] MEDS: Insulin Glargine 8 UNITS in Pre-Filled Syringe 1 EACH SC SCH (21:05)
[2020-05-20] MEDS: Cefepime 2 GM in Sodium Chloride 0.9% 100 ML IVPB SCH ×2 (00:28→12:13)
[2020-05-20] MEDS: Sodium Chloride 0.9% 1,000 ML IV SCH ×2 (00:28→12:17)
[2020-05-20] MEDS: Acetaminophen 325 MG TAB PO PRN ×2 (00:38→18:08)
[2020-05-20] MEDS: HumaLOG 300 UNITS/3 ML VIAL SC PRN ×4 (05:45→21:16)
[2020-05-20] MEDS: Ketorolac Tromethamine 10 MG TAB PO PRN ×3 (05:45→21:09)
[2020-05-20 05:54] LABS: Band 12 % (5-11); Eosinophils 1 % (0-10); Lymphocytes 14 % (21-51); MDiff Complete? YES; Mean Corpuscular HGB CONC 33.1 g/dL (32.0-36.0); Mean Corpuscular Volume 99.5 fL (78.0-98.0); Mean Platelet Volume 8.4 fL (7.4-10.4); Metamyelocyte 3 % (0-0); Monocytes 7 % (0-10); Neutrophil 63 % (42-75); Platelet Count 163 thou/uL (130-400); Platelet Morphology Comment Appears Adequate; RBC Distribution Width 11.5 % (11.5-14.5); Red Blood Cell (RBC) Count 3.64 mill/uL (4.70-6.10); White Blood Cell (WBC) Count 9.8 thou/uL (4.8-10.8)
[2020-05-20 05:57] LABS: Anion Gap 10 mmol/L (10-20); BUN (Urea Nitrogen) 9 mg/dL (8.9-20.6); Calc. Creatinine Clearance 277 mL/min (70-130); Calcium 7.3 mg/dL (7.8-10.44); Carbon Dioxide 28 mmol/L (22-29); Chloride 99 mmol/L (98-107); Glucose 272 mg/dL (70-105); Potassium 3.3 mmol/L (3.5-5.1); Sodium 134 mmol/L (136-145)
[2020-05-20] MEDS ORDERED: Potassium Chloride 20 MEQ TAB PO SCH (06:45)
[2020-05-20] MEDS: Furosemide 20 MG TAB PO SCH (08:25)
[2020-05-20] MEDS: Famotidine 20 MG TAB PO SCH ×2 (08:25→21:10)
[2020-05-20] MEDS: metFORMIN 500 MG TAB PO SCH ×2 (08:25→16:03)
[2020-05-20] MEDS: Heparin 5,000 UNITS/ML VIAL SC SCH ×3 (08:26→21:12)
[2020-05-20] MEDS: HumaLOG 300 UNITS/3 ML VIAL SC SCH ×3 (08:26→16:03)
[2020-05-20] MEDS: Lisinopril 20 MG TAB PO SCH (08:26)
[2020-05-20] MEDS: BIOTENE MOUTH SPRAY 44.3 ML PO SCH ×2 (08:27→21:17)
[2020-05-20] MEDS: Nystatin 500,000 UNITS/5 ML UDCUP SSW SCH ×4 (08:27→21:12)
[2020-05-20] MEDS: Insulin Glargine 15 UNITS in Pre-Filled Syringe 1 EACH SC SCH (08:48)
[2020-05-20] MEDS: Nicotine 14 MG PATCH TD SCH (11:07)
--- NOTE | 2020-05-20 15:57 | PDOC.HOSPP ---
- Subjective Encounter Date: 05/20/20 Encounter Time: 11:45 Subjective: pt up in bed states that he feels better today - Objective Vital Signs & Weight: Vital Signs (12 hours) Temp Pulse Resp BP Pulse Ox 05/20/20 11:35 98.5 F 88 20 128/71 95 05/20/20 08:35 93 L 05/20/20 07:15 98.5 F 97 20 114/55 L 93 L Weight Weight 352 lb 4 oz Most Recent Monitor Data Heart Rate from ECG 101 NIBP 124/57 NIBP BP-Mean 79 Respiration from ECG 33 SpO2 97 I&O: 05/19/20 05/20/20 05/21/20 06:59 06:59 06:59 Intake Total 7548 4997.5 Output Total 5725 5225 Balance 1823 -227.5 Result Diagrams: 05/20/20 05:16 05/20/20 05:16 Additional Labs: Accuchecks 05/20/20 05/20/20 05/19/20 11:30 05:36 20:37 POC Glucose 264 H 264 H 205 H 05/19/20 16:26 POC Glucose 281 H Hospitalist ROS - Review of Systems Respiratory: denies: cough, dry, shortness of breath, hemoptysis, SOB with excertion, pleuritic pain, sputum, wheezing, other Cardiovascular: denies: chest pain, palpitations, orthopnea, paroxysmal noc. dyspnea, edema, light headedness, other Gastrointestinal: denies: nausea, vomiting, abdominal pain, diarrhea, constipation, melena, hematochezia, other - Medication Medications: Active Medications Generic Name Dose Route Start Last Admin Trade Name [place] PRN Reason Stop Dose Admin Acetaminophen 650 mg 05/14/20 13:03 05/20/20 00:38 Acetaminophen 325 Mg Tab PO 650 mg Q6H PRN Administration Headache/Fever/Mild Pain (1-3) Atorvastatin Calcium 20 mg 05/16/20 21:00 05/19/20 21:04 Atorvastatin Calcium 20 Mg Tab PO 20 mg HS AAYUSH Administration Famotidine 20 mg 05/17/20 21:00 05/20/20 08:25 Famotidine 20 Mg Tab PO 20 mg BID AAYUSH Administration Furosemide 20 mg 05/16/20 09:00 05/20/20 08:25 Furosemide 20 Mg Tab PO 20 mg QAM AAYUSH Administration Heparin Sodium (Porcine) 5,000 units 05/14/20 15:00 05/20/20 08:26 Heparin 5,000 Units/Ml Vial SC 5,000 units TID AAYUSH Administration Insulin Glargine 15 units/ 0.15 mls @ 0 mls/hr 05/16/20 09:00 05/20/20 08:48 Miscellaneous Medication SC 0.15 mls QAM AAYUSH Administration Cefepime HCl 2 gm/ Sodium 100 mls @ 200 mls/hr 05/16/20 13:00 05/20/20 12:13 Chloride IVPB 100 mls 0100,1300 AAYUSH Administration Sodium Chloride 1,000 mls @ 75 mls/hr 05/16/20 16:00 05/20/20 12:17 Normal Saline 0.9% IV 1,000 mls .[id number] AAYUSH Administration Insulin Glargine 8 units/ 0.08 mls @ 0 mls/hr 05/17/20 21:00 05/19/20 21:05 Miscellaneous Medication SC 0.08 mls HS AAYUSH Administration Insulin Human Lispro 0 units 05/15/20 19:57 05/19/20 21:06 Humalog 300 Units/3 Ml Vial SC 2 unit .BEDTIME SLIDING SC PRN Administration Bedtime Correctional Scale Insulin Human Lispro 0 units 05/15/20 19:57 05/20/20 12:14 Humalog 300 Units/3 Ml Vial SC 6 units .MODERATE SLIDING SC PRN Administration Moderate Correctional Scale Insulin Human Lispro 8 units 05/19/20 17:00 05/20/20 12:14 Humalog 300 Units/3 Ml Vial SC 8 unit TID-WM AAYUSH Administration Ketorolac Tromethamine 10 mg 05/18/20 23:20 05/20/20 13:21 Ketorolac Tromethamine 10 Mg Tab PO 05/23/20 23:21 10 mg Q6HR PRN Administration pain Lisinopril 20 mg 05/19/20 09:00 05/20/20 08:26 Lisinopril 20 Mg Tab PO Not Given DAILY AAYUSH Metformin HCl 500 mg 05/16/20 17:00 05/20/20 08:25 Metformin 500 Mg Tab PO 500 mg BID-WM AAYUSH Administration Miscellaneous Medication 0 ml 05/16/20 21:00 05/20/20 08:27 Biotene Mouth [place] 44.3 Ml PO 1 spr BID AAYUSH Administration Nicotine 14 mg 05/20/20 11:00 05/20/20 11:07 Nicotine 14 Mg Patch TD 14 mg Q24HR AAYUSH Administration Nystatin 0 gm 05/14/20 18:27 05/16/20 17:13 Nystatin Powder 15 Gm Bot TOP 1 applic BIDPRN PRN Administration Rash/Topical Irritation Nystatin 500,000 units 05/16/20 17:00 05/20/20 12:13 Nystatin 500,000 Units/5 Ml Udcup SSW 500,000 units QID AAYUSH Administration Senna/Docusate Sodium 2 tab 05/14/20 13:03 05/17/20 12:15 Senokot S 8.6-50 Mg Tab PO 2 tab BIDPRN PRN Administration Constipation Sodium Chloride 10 ml 05/14/20 21:00 05/20/20 08:27 Flush - Normal Saline 10 Ml Syringe IVF 10 ml Q12HR AAYUSH Administration - Exam General - other findings: Mild purulent exudate noted in patient's uvula and tonsils. Neck: negative: supple, symmetric, no JVD, no thyromegaly, no lymphadenopathy, no carotid bruit, JVD Heart: negative: RRR, no murmur, no gallops, no rubs, normal peripheral pulses, irregular, diminshed peripheral pulses, murmur present, II/IV, III/IV Respiratory: negative: CTAB, no wheezes, no rales, no ronchi, normal chest expansion, no tachypnea, normal percussion, rales, rhonchi, tachypneic, wheezes Gastrointestinal: negative: soft, non-tender, non-distended, normal bowel sounds, no palpable masses, no hepatomegaly, no splenomegaly, no bruit, no guarding, no rigidity, tender to palpation, distended, diminished bowl sounds, voluntary guarding Hosp A/P (1) DKA (diabetic ketoacidoses) Code(s): E11.10 - TYPE 2 DIABETES MELLITUS WITH KETOACIDOSIS WITHOUT COMA Status: Acute (2) Cellulitis Code(s): L03.90 - CELLULITIS, UNSPECIFIED Status: Acute (3) Obesity Code(s): E66.9 - OBESITY, UNSPECIFIED Status: Acute (4) Increased anion gap metabolic acidosis Code(s): E87.2 - ACIDOSIS Status: Acute - Plan Patient taken off insulin drip his gap is closed. We will transition to subcu insulin. CT of the left thigh indicates cellulitis will get infectious disease involved. Patient states that he has had this for quite some time. We will continue cefepime from now. PT to evaluate patient patient most likely will need correction facility. 05/16 still appears very dehydrated we will start him on some IV fluids. We will start him on some nystatin however I did not appreciate any oral thrush. We will see physical therapy to work with patient. We will also start him on some duo nebs he continues to smoke. Will check a BNP 05/17 we will continue IV antibiotics for now. We will give him 1 dose of IV Diflucan since he complains of pain on swallowing. No visible thrush noted. We will also put patient on PPI. We will add Lantus 8 units at nighttime. 05/18 continue IV Diflucan for now. We will continue insulin. Patient most likely will need correction facility. On DVT prophylaxis. We will continue current antibiotics. 05/19 we will increase patient's Humalog to 8 units with meals. Patient will require correction facility. Possible discharge in the next 24 hours. We will continue current antibiotics. Will check labs in a.m. Will replace potassium. Asked physical therapy to get patient up in chair. 05/20 patient has been denied from all correction facilities. He continues to improve. However still weak and will require some rehabilitation. Continue current antibiotics. We will check a strep throat since he is got some exudate on his tonsils. However according to nursing staff he has been eating more. Will stop fluids.
[2020-05-20] MEDS: Atorvastatin Calcium 20 MG TAB PO SCH (21:10)
[2020-05-20] MEDS: Insulin Glargine 8 UNITS in Pre-Filled Syringe 1 EACH SC SCH (21:16)
[2020-05-20] MEDS: Nystatin Powder 15 GM BOT TOP PRN (21:17)
[2020-05-21] MEDS: Acetaminophen 325 MG TAB PO PRN ×2 (00:04→16:51)
[2020-05-21] MEDS: Cefepime 2 GM in Sodium Chloride 0.9% 100 ML IVPB SCH ×2 (00:04→12:11)
[2020-05-21] MEDS: HumaLOG 300 UNITS/3 ML VIAL SC PRN ×3 (06:01→16:53)
[2020-05-21 06:04] LABS: Anion Gap 11 mmol/L (10-20); BUN (Urea Nitrogen) 6 mg/dL (8.9-20.6); Calc. Creatinine Clearance 281 mL/min (70-130); Calcium 7.5 mg/dL (7.8-10.44); Carbon Dioxide 29 mmol/L (22-29); Chloride 100 mmol/L (98-107); Glucose 216 mg/dL (70-105); Potassium 3.3 mmol/L (3.5-5.1); Sodium 137 mmol/L (136-145)
[2020-05-21] MEDS ORDERED: Potassium Chloride 20 MEQ TAB PO SCH ×2 (06:45→10:00)
[2020-05-21] MEDS: Heparin 5,000 UNITS/ML VIAL SC SCH ×2 (08:10→14:34)
[2020-05-21] MEDS: Furosemide 20 MG TAB PO SCH (08:11)
[2020-05-21] MEDS: Lisinopril 20 MG TAB PO SCH (08:11)
[2020-05-21] MEDS: HumaLOG 300 UNITS/3 ML VIAL SC SCH ×3 (08:11→16:53)
[2020-05-21] MEDS: metFORMIN 500 MG TAB PO SCH ×2 (08:11→16:51)
[2020-05-21] MEDS: Insulin Glargine 15 UNITS in Pre-Filled Syringe 1 EACH SC SCH (08:11)
[2020-05-21] MEDS: Famotidine 20 MG TAB PO SCH (08:12)
[2020-05-21] MEDS: Nystatin 500,000 UNITS/5 ML UDCUP SSW SCH ×3 (08:12→16:51)
[2020-05-21] MEDS: BIOTENE MOUTH SPRAY 44.3 ML PO SCH (08:17)
[2020-05-21] MEDS: Ketorolac Tromethamine 10 MG TAB PO PRN (09:37)
[2020-05-21] MEDS: Nicotine 14 MG PATCH TD SCH (10:46)
--- NOTE | 2020-05-21 11:51 | PRG ---
DATE OF SERVICE: 05/21/2020 SUBJECTIVE: Still quite a bit of tenderness in the lymphedematous area of cellulitis in the left thigh. He developed sore throat now, difficulty in swallowing certain types of meals, particularly the ones that have more acidity. It is localized to the posterior oropharyngeal area. No headaches. No diarrhea. Voiding without difficulty. OBJECTIVE: VITAL SIGNS: His temperature is normal. O2 saturations 93 on room air, breathing at 18 times a minute, pressure normal. GENERAL: Awake, alert and oriented. HEENT: Oropharyngeal area with little blisters in the posterior oropharynx. LUNGS: Symmetric, clear breath sounds. HEART: S1 and S2, regular rate. ABDOMEN: Soft, not distended. EXTREMITIES: Still with a lymphedematous area in the left thigh, little bit improved but not much. There is a bulging blister with fluid content amidst this area, still quite tender in the dependent areas. NEURO: Examination unchanged. LABORATORY DATA: White cell count 9.8, hemoglobin 12, platelets 163 with 12% bands. Creatinine 0.71. ASSESSMENT/DISCUSSION: Morbid obesity, sleep apnea, type 2 diabetes, some element of diabetic ketoacidosis, lymphedematous mass with cellulitis. No necrotizing features yet, but there is a blister that is ready to drain in one of the sites and stomatitis probably due to herpes simplex. Start acyclovir. Continue IV antimicrobial therapy as currently with cefepime, PICC line placement, transferred to a skilled unit and probably need at least another two weeks of treatment. I believe the blister is not going to yield any growths, it is probably going to be just serous fluid. Job ID: [id number]
[2020-05-21] MEDS ORDERED: Acyclovir 400 mg Tablet PO SCH (15:00)
--- NOTE | 2020-05-21 15:35 | SPC ---
[facility] CVP LINE PICC INITAL >5 History: Need for long-term IV access Comparison: None. Findings: Patient was brought to the specials suite. All questions were answered. Informed consent ob tained. Timeout performed. The patient's left arm was prepped and draped in normal sterile fashion. After adequate local anesthe aubree with lidocaine, the left basilic vein was accessed. Over a wire and through a peel-away sheath a PICC was placed with tip at the inferior SVC. Patient tolerated the procedure well without complica tion. Impression: Technically successful ultrasound and fluoroscopic guided PICC placement. Total fluoroscopy time: 0.3 minutes
--- NOTE | 2020-05-21 16:14 | PDOC.DS.DS ---
Provider - Provider Date of Admission: 05/14/20 11:43 Date of Discharge: 05/21/20 Admitting Provider: Trena Hunter MD Consultations: Infectious Disease Primary Care Physician: KRYSTLE Woods Course - Hospital Course Hospital Course: Patient is a 50-year-old male with history of diabetes comes into the hospital with generalized weakness and fatigue. She was noted to be in DKA and was started on insulin drip. He was initially in the IMCU and then was downgraded. Patient's hemoglobin A1c was greater than 14. He was noted to have cellulitis of his left thigh. Infectious disease was consulted. Patient was put on cefepime. He will continue an additional 2 weeks of cefepime. PICC line has been placed. Patient also was noted to have some purulent exudate versus pustular he was put on some acyclovir which will continue for 7 days. Wound care also saw the patient. Resuscitation Status: 05/14/20 13:03 Resuscitation Status Routine Resuscitation Status: FULL: Full Resuscitation - Labs Lab Results: 05/20/20 05:16 05/21/20 05:28 Abnormal Lab Results - Last 48 hrs 05/20/20 05:16: Sodium 134 L, Potassium 3.3 L, Calcium 7.3 L 05/20/20 05:16: RBC 3.64 L, Hgb 12.0 L, Hct 36.2 L, MCV 99.5 H, MCH 33.0 H, Band Neuts % (Manual) 12 H, Lymphocytes % (Manual) 14 L 05/21/20 05:28: Potassium 3.3 L, BUN 6 L, Calcium 7.5 L Microbiology - Entire Visit 05/20/20 12:22 Tonsil Group A Streptococcus Screen ([facility]) - Final 05/14/20 09:58 Venous blood - Left Hand Blood Culture - Final NO GROWTH IN 5 DAYS 05/14/20 09:58 Venous blood - Left Arm Blood Culture - Final NO GROWTH IN 5 DAYS 05/14/20 10:02 Urine voided Urine Culture - Final - Physical Exam Vitals: Vital Signs (12 hours) Temp Pulse Resp BP Pulse Ox 05/21/20 11:37 98.0 F 93 17 125/72 92 L 05/21/20 08:00 93 L 05/21/20 07:50 98.9 F 101 H 18 123/72 93 L Weight Weight 352 lb 4 oz Most Recent Monitor Data Heart Rate from ECG 101 NIBP 124/57 NIBP BP-Mean 79 Respiration from ECG 33 SpO2 97 Physical Exam: The patient was seen and examined on the day of discharge. Problem - Problem (1) DKA (diabetic ketoacidoses) Code(s): E11.10 - TYPE 2 DIABETES MELLITUS WITH KETOACIDOSIS WITHOUT COMA Status: Acute (2) Cellulitis Code(s): L03.90 - CELLULITIS, UNSPECIFIED Status: Acute (3) Obesity Code(s): E66.9 - OBESITY, UNSPECIFIED Status: Acute (4) Increased anion gap metabolic acidosis Code(s): E87.2 - ACIDOSIS Status: Acute Plan - Discharge Medications Prescriptions: Saccharomyces Boulardii [Florastor] 250 mg PO DAILY #30 capsule Nystatin 100,000 Units/mL [Mycostatin Oral Suspension] 2 ml SSW QID #1 bot Potassium Chloride 20 meq PO DAILY #5 tablet.er Home Medications: Medication Instructions Recorded Confirmed Type Lisinopril/Hydrochlorothiazide 1 tablet PO BID 08/24/14 05/14/20 History [Lisinopril-Hctz 20-12.5 mg Tab] Furosemide 20 mg PO QAM 05/14/20 05/14/20 History metFORMIN [Glucophage] 500 mg PO BID-WM 05/14/20 05/14/20 History Acyclovir [Zovirax] 400 mg PO TID #0 tab 05/21/20 Rx Atorvastatin Calcium [Lipitor] 20 mg PO HS tab 05/21/20 Rx Cefepime [Maxipime] 2 gm IVPB 0100,1300 vial 05/21/20 Rx Insulin Glargine [Lantus Vial] 8 units SC HS vial 05/21/20 Rx Insulin Glargine [Lantus Vial] 15 units SC QAM vial 05/21/20 Rx Nicotine [Nicoderm CQ] 14 mg TD Q24HR patch 05/21/20 Rx Nystatin 100,000 Units/mL 2 ml SSW QID #1 bot 05/21/20 Rx [Mycostatin Oral Suspension] Potassium Chloride 20 meq PO DAILY #5 tablet.er 05/21/20 Rx Saccharomyces Boulardii [Florastor] 250 mg PO DAILY #30 capsule 05/21/20 Rx Sennosides/Docusate Sodium 2 tab PO BIDPRN PRN tab 05/21/20 Rx [Senokot S] Allergies: No Known Allergies Allergy (Verified 08/25/19 15:36) - Discharge Instructions Discharge Instructions:: Acylovir for 7 days. Cefepime for the next two weeks per ID. please check bmp since his potassium has been low. I have put him on potassium for the next 5 days. Activity:: Activity as Tolerated Nourishment:: Heart Healthy Diet - Follow up Plan Referrals: Rosalie Prater FNP [Primary Care Provider] - Disposition: HOME Quality - Care Measures CORE MEASURES:: N/A
[2020-05-21 16:33] VITALS: BP 128/74; TEMP 99.7
--- NOTE | 2020-05-22 15:18 | EKG ---
Test Reason : Blood Pressure : / mmHG Vent. Rate : 100 BPM Atrial Rate : 100 BPM P-R Int : 204 ms QRS Dur : 098 ms QT Int : 352 ms P-R-T Axes : 073 016 033 degrees QTc Int : 454 ms Normal sinus rhythm Normal ECG Confirmed by LEE NUNEZ DO ([id number]), video tape editor BORIS LEE ([id number]) on 05/22/2020 3:17:48 PM Referred By: Confirmed By:LEE NUNEZ DO
--- NOTE | 2020-05-24 07:09 | PQF ---
CLINICAL DOCUMENTATION CLARIFICATION FORM: Dear : Trena Hunter Date / Time: 05/21/20 0706 Please exercise your independent, professional judgment in responding to the clarification form. Clinical indicators are provided on the bottom of this form for your review Please check appropriate box(s) to clarify if the following diagnosis has been ruled in or ruled out: Sepsis [ ] Ruled in diagnosis [ x] Continue to treat [ ] Resolved [ ] Ruled out diagnosis [ ] Cannot rule out diagnosis [ ] Other diagnosis [ ] Unable to determine Physician Signature: Date/Time: For continuity of documentation, please document condition throughout progress notes and discharge summary. Thank You. To be completed by CDI/Coding staff for physician review: Present Clinical Indicators - Signs / Symptoms / Labs Results and Location in Medical Record [X] WBC 15.2, Plt count 143, Neutrophils 60, Band 32, Lactic acid 4.2 Laboratory 05/14 [X] Blood culture : No growth in 5 days Microbiology 05/14 [X] BP 136/45, Pulse 96, Resp 24, Temp 98.6 Vital signs 05/14 [X] Labs +serum leukocytosis and increased lactated ED notes p12 05/14 [X] Broad spectrum anbx for Sepsis ED notes p12 05/14 [X] his blood sugar was 400 H&P p1 05/14 Dr Hunter [X] Anion gap acidosis H&P p2 05/14 Dr Hunter [X] Sepsis, Cellulitis of thigh H&P p2 05/14 Dr Hunter Present Risk Factors Results and Location in Medical Record [X] DM H&P p1 05/14 Dr Hunter [X] Obesity H&P p1 05/14 Dr Hunter [X] HTN H&P p1 05/14 Dr Hunter [X] DKA H&P p1 05/14 Dr Hunter [X] Cellulitis of thigh H&P p2 05/14 Dr Hunter Present Treatments Results and Location in Medical Record [X] IV Maxipime 2 gm AUG 13 [X] IVF NS 1L AUG 13 [X] IV Vancomycin 1 gm AUG 13 [X] ID consult Consult Dr Caicedo 05/15 CDS/Manager Planning Signature: Kayley Stoneivan Jones Phone #: [phone] Date/Time: 03/19/2020 0706 This is a permanent part of the Medical Record [facility]
== END 2020-05-21 19:26 | DRG 871 ==
LOC: ERS 07:43 → SUATTDRO 07:43 → ERHOLD 11:43 → IMCU/EMU 16:08 → SURG B 05-15 23:03
PROVIDERS: ADMIT Internal Medicine; ATTEND Internal Medicine
PROC: 02HV33Z Insertion of Infusion Device into Superior Vena Cava, Percutaneous Approach (ICD-10-PCS; principal; 2020-05-21)
PROC: B518ZZA Fluoroscopy of Superior Vena Cava, Guidance (ICD-10-PCS; 2020-05-21)
PROC: B548ZZA Ultrasonography of Superior Vena Cava, Guidance (ICD-10-PCS; 2020-05-21)
DX: A41.9 Sepsis, unspecified organism (principal); E11.10 Type 2 diabetes mellitus with ketoacidosis without coma; E87.1 Hypo-osmolality and hyponatremia; Z68.43 Body mass index [BMI] 50.0-59.9, adult; B00.2 Herpesviral gingivostomatitis and pharyngotonsillitis; L03.116 Cellulitis of left lower limb; Z20.828 Contact with and (suspected) exposure to other viral communicable diseases; I10 Essential (primary) hypertension; Z96.651 Presence of right artificial knee joint; F17.210 Nicotine dependence, cigarettes, uncomplicated; E87.5 Hyperkalemia; E66.9 Obesity, unspecified; E66.01 Morbid (severe) obesity due to excess calories; E86.0 Dehydration; G47.30 Sleep apnea, unspecified; Z23 Encounter for immunization; Z98.49 Cataract extraction status, unspecified eye; Z79.899 Other long term (current) drug therapy; Z79.84 Long term (current) use of oral hypoglycemic drugs; Z79.1 Long term (current) use of non-steroidal anti-inflammatories (NSAID); Z78.1 Physical restraint status
CPT/HCPCS: 0240U; 36415; 36416; 36569; 71045; 80048; 80053; 81003; 81015; 82010; 82330; 82803; 83036; 83605; 83735; 83880; 83930; 84100; 84484; 85025; 87040; 87081; 87086; 87430; 90471; 90662; 90670; 93005; 96365; 96366; 96368; C1751; G0008; G0009; J0692; J1450; J1644; J1815; J3370; J3480; J3490